=== PATIENT | female | born 1950 | race Caucasian/White ===

== ENCOUNTER 2017-12-25 11:41 | Emergency (ER) | payer MEDICARE ==
[~2017-12-25] VITALS: Ht 167.6 cm; Wt 59.0 kg
[2017-12-25 11:50] VITALS: BP 126/81
--- NOTE | 2017-12-25 11:57 | NUR ---
Patient ambulated to bed 4 at this time.
--- NOTE | 2017-12-25 11:59 | NUR ---
67Y/F BIB SELF C/O LT HAND PAIN BY CATCHING FALL X THIS MORNING. + CMS, CAP REFILL < 3 SEC, + ROM, + SWOLLEN AND REDNESS NOTED ON LT HAND, 9/10 THROBBING PAIN SCALE; BED DOWN; BEDRAIL UP X 1; ER MD AWARE AND NOTIFIED OF PT STATUS. HX; DENIES RX; ALEVE, VITAMINS
[2017-12-25] MEDS ORDERED: KETOROLAC 30 MG/ML VIAL IM ONE (13:35)
--- NOTE | 2017-12-25 14:00 | NUR ---
DR REDDY, AT [facility].
--- NOTE | 2017-12-25 14:12 | NUR ---
TECH AT BEDSIDE GUSTAVO SPLINT
[2017-12-25 14:24] VITALS: BP 119/76
--- NOTE | 2017-12-25 14:24 | NUR ---
Patient discharged with v/s stable. Written and verbal after care instructions given and explained. Patient alert, oriented and verbalized understanding of instructions. Ambulatory with steady gait. All questions addressed prior to discharge. ID band removed. Patient advised to follow up with PMD. Rx of motrin and norco given. Patient educated on indication of medication including possible reaction and side effects. Opportunity to ask questions provided and answered.
== END 2017-12-25 14:24 | disposition home or self-care (01) ==
LOC: MED 11:41
DX: S62.327A Displaced fracture of shaft of fifth metacarpal bone, left hand, initial encounter for closed fracture (principal); F17.200 Nicotine dependence, unspecified, uncomplicated; W01.0XXA Fall on same level from slipping, tripping and stumbling without subsequent striking against object, initial encounter; Y93.89 Activity, other specified; Y92.89 Other specified places as the place of occurrence of the external cause; Y99.8 Other external cause status
CPT/HCPCS: 29125; 73130; 96372; 99284; J1885; Q0092